=== PATIENT | male | born 1990 | race Caucasian/White ===

== ENCOUNTER 2019-02-19 01:05 | Emergency (ER) | payer SELFPAY ==
[~2019-02-19] VITALS: Ht 175.3 cm; Wt 72.0 kg
[2019-02-19 01:10] VITALS: Ht 175.3 cm; Wt 72.0 kg
[2019-02-19] MEDS ORDERED: ONDANSETRON (ODT) 4 MG TAB ODT STA (01:28)
[2019-02-19] MEDS ORDERED: RALTEGRAVIR 400 MG TAB PO ONE (01:30)
[2019-02-19] MEDS ORDERED: EMTRICITABINE/TENOFOVIR TAB PO ONE (01:30)
[2019-02-19] MEDS ORDERED: EMTR1TAB11 PO (01:51)
[2019-02-19] MEDS ORDERED: ONDA4TAB14 PO (01:51)
[2019-02-19] MEDS ORDERED: ISEN400 PO (01:51)
--- NOTE | 2019-02-19 02:00 | ERD ---
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 When in custody he recent his pocket and felt like he scraped or possibly poked his right hand, ulnar aspect of the second finger. There is no bleeding. Skin had no clear evidence of break. Patient was concern for possible HIV exposure. His tetanus is up-to-date. He denies any symptoms currently. ROS All systems reviewed and are negative except as per history of present illness. Medications Home Meds Active Scripts Ondansetron (Ondansetron Odt) 4 Mg Tab.rapdis, 4 MG PO Q6H PRN for NAUSEA AND/OR VOMITING, #30 TAB Prov:DANII WISDOM MD 02/19/19 Emtricitabine-Tenofovir* (Truvada*) 200-300 Mg Tablet, 1 TAB PO DAILY for 28 Days, TAB Prov:DANII WISDOM MD 02/19/19 Raltegravir Potassium* (Isentress*) 400 Mg Tablet, 400 MG PO BID for 28 Days, TAB Prov:DANII WISDOM MD 02/19/19 Allergies Allergies: Coded Allergies: No Known Allergy (Unverified , 02/19/19) PMhx/Soc Medical and Surgical Hx: pt denies Medical Hx, pt denies Surgical Hx Hx Alcohol Use: No Hx Substance Use: No Hx Tobacco Use: No Smoking Status: Never smoker FmHx Family History: No diabetes Physical Exam Vitals Vital Signs Date Temp Pulse Resp B/P (MAP) Pulse Ox O2 O2 Flow FiO2 Time Delivery Rate 02/19/19 97.8 55 16 135/75 97 01:10 (95) Physical Exam General: Well developed, well nourished, no acute distress Head: Normocephalic, atraumatic. Eyes: EOM intact ENT: Moist mucous membranes Neck: Full ROM Respiratory: No respiratory distress Cardiovascular: Well perfused distally Abdominal: Nondistended : Deferred MSK: No edema, no unilateral swelling, 5/5 strength Neurologic: Alert and oriented, moving all extremities, normal speech, steady gait Skin: No rash, no evidence of skin violation of the right hand. Psych: Normal mood Results 24 hrs Current Medications Medications Dose Sig/Hodan Start Time Status Last (Trade) Ordered Route PRN Stop Time Admin Dose Reason Admin 1 tab ONCE ONCE 02/19/19 DC Emtricitabine PO 01:30 / Tenofovir 02/19/19 01:31 (Truvada) 400 mg ONCE ONCE 02/19/19 DC Miscellaneous PO 01:30 Medication 02/19/19 01:31 (Isentress) Ondansetron 4 mg ONCE STAT 02/19/19 DC HCl (Zofran ODT 01:28 Odt) 02/19/19 01:30 Procedures/MDM Patient with possible needlestick exposure with unknown HIV status of source patient. Is a homeless individual. The officer and I had a in-depth conversation discussing the risk benefits and alternatives of postexposure prophylaxis. We discussed different management strategies but the patient would like to initiate postexposure prophylaxis for HIV. His hand was thoroughly cleansed. Tetanus is up-to-date. First dose of Truvada and Isentress provided in the emergency room setting. The patient can be safely discharged home. Baseline labs were drawn. 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 Return precautions were discussed and understood. The patient does not have an identifiable emergent medical condition that warrants inpatient hospitalization at this time. The patient is deemed safe for discharge with outpatient follow-up. We discussed follow up with the patient's primary care doctor within 24 to 48 hours as needed. We also discussed return to the emergency room for worsening symptoms or worsening condition. Outpatient referral: None required Discharge Medications: Truvada, Isentress, Zofran Departure Diagnosis: Primary Impression: Needlestick injury accident Condition: Good Patient Instructions: Standard Precautions: [place] and Other [place] Referrals: [facility] YOU HAVE RECEIVED A MEDICAL SCREENING EXAM AND THE RESULTS INDICATE THAT YOU DO NOT HAVE A CONDITION THAT REQUIRES URGENT TREATMENT IN THE EMERGENCY DEPARTMENT. FURTHER EVALUATION AND TREATMENT OF YOUR CONDITION CAN WAIT UNTIL YOU ARE SEEN IN YOUR DOCTORS OFFICE WITHIN THE NEXT 1-2 DAYS. IT IS YOUR RESPONSIBILITY TO MAKE AN APPOINTMENT FOR FOLOW-UP CARE. IF YOU HAVE A PRIMARY DOCTOR --you should call your primary doctor and schedule an appointment IF YOU DO NOT HAVE A PRIMARY DOCTOR YOU CAN CALL OUR PHYSICIAN REFERRAL HOTLINE AT IF YOU CAN NOT AFFORD TO SEE A PHYSICIAN YOU CAN CHOSE FROM THE FOLLOWING COMMUNITY CLINICS [facility] [address] [place] [facility] [address] [facility] [address] [facility] [address] [facility] [address] [facility]. [facility] [address] [facility]. [facility] YOU HAVE RECEIVED A MEDICAL SCREENING EXAM AND THE RESULTS INDICATE THAT YOU DO NOT HAVE A CONDITION THAT REQUIRES URGENT TREATMENT IN THE EMERGENCY DEPARTMENT. FURTHER EVALUATION AND TREATMENT OF YOUR CONDITION CAN WAIT UNTIL YOU ARE SEEN IN YOUR DOCTORS OFFICE WITHIN THE NEXT 1-2 DAYS. IT IS YOUR RESPONSIBILITY TO MAKE AN APPOINTMENT FOR FOLOW-UP CARE. IF YOU HAVE A PRIMARY DOCTOR --you should call your primary doctor and schedule and appointment IF YOU DO NOT HAVE A PRIMARY DOCTOR YOU CAN CALL OUR PHYSICIAN REFERRAL HOTLINE AT . IF YOU CAN NOT AFFORD TO SEE A PHYSICIAN YOU CAN CHOSE FROM THE FOLLOWING COMMUNITY HEALTH INSTITUTIONS: [facility] [address] [place] [address] [facility] [address] [place] [address] [facility] [address] [place] [address] Additional Instructions: Call your primary care doctor TOMORROW for an appointment during the next 1 WEEK.Tell the medical unit secretary that you were referred from this facility.See the doctor sooner or return here if your condition worsens before your appointment time. Follow up with your occupational health DANII WISDOM MD Feb 19, 2019 02:00
[2019-02-19] MEDS ORDERED: EMTRICITABINE 200 MG CAP PO ONE (02:30)
[2019-02-19] MEDS ORDERED: TENOFOVIR 300 MG TAB PO ONE (02:30)
[2019-02-19 03:12] VITALS: BP 129/85; PULSE 60; RESP 16
== END 2019-02-19 03:13 | disposition home or self-care (01) ==
LOC: E/R 01:05
DX: S61.431A Puncture wound without foreign body of right hand, initial encounter (principal); W46.0XXA Contact with hypodermic needle, initial encounter; Y92.89 Other specified places as the place of occurrence of the external cause
CPT/HCPCS: 80076; 85025; 86703; 86706; 86803; 87340; 99283